=== PATIENT | female | born 1955 | race Caucasian/White ===

== ENCOUNTER 2021-03-16 07:27 | Day surgery (SDC) | payer OTHER ==
[2021-03-10 12:41] VITALS: BMI 38.9
[2021-03-16] MEDS ORDERED: DEXAMETHASONE SOD PHOSPHATE 4 MG/1 ML VIAL ONE ×2 (08:26→12:19)
[2021-03-16] MEDS ORDERED: ONDANSETRON 4 MG/2 ML VIAL ONE ×2 (08:26→12:19)
[2021-03-16] MEDS ORDERED: ceFAZolin SODIUM 1 GM VIAL ONE (08:26)
[2021-03-16] MEDS ORDERED: PROPOFOL 20 ML ONE ×4 (08:26→11:39)
[2021-03-16] MEDS ORDERED: ROPIVACAINE HCL 0.5% 30ML VIAL ONE (08:33)
[2021-03-16] MEDS ORDERED: MIDAZOLAM HCL 2 MG/2 ML SINGLE DOSE VIAL ONE ×2 (08:33→08:41)
[2021-03-16] MEDS ORDERED: KETOROLAC TROMETHAMINE 30 MG/1 ML VIAL ONE (09:14)
[2021-03-16] MEDS ORDERED: oxyCODONE HCL 5 MG TABLET PO PRN ×2 (12:55)
[2021-03-16] MEDS ORDERED: ACETAMINOPHEN 500 MG TABLET (FP) PO PRN (12:55)
[2021-03-16] MEDS ORDERED: ONDANSETRON 4 MG/2 ML VIAL IVPUSH PRN (12:55)
[2021-03-16] MEDS ORDERED: LACTATED RINGERS SOLUTION 1,000 ML IV SCH (13:00)
[2021-03-16 13:49] VITALS: BP 134/72; PULSE 74; TEMP 97.8
== END 2021-03-16 13:49 | disposition home or self-care (01) ==
LOC: FASU 07:27
PROVIDERS: ATTEND Orthopaedic Surgery
PROC: 0RNJ4ZZ Release Right Shoulder Joint, Percutaneous Endoscopic Approach (ICD-10-PCS; 2021-03-16)
PROC: 0LQ14ZZ Repair Right Shoulder Tendon, Percutaneous Endoscopic Approach (ICD-10-PCS; principal; 2021-03-16 10:55)
PROC: 0LS34ZZ Reposition Right Upper Arm Tendon, Percutaneous Endoscopic Approach (ICD-10-PCS; 2021-03-16 10:55)
DX: M75.121 Complete rotator cuff tear or rupture of right shoulder, not specified as traumatic (principal); S46.111A Strain of muscle, fascia and tendon of long head of biceps, right arm, initial encounter; X58.XXXA Exposure to other specified factors, initial encounter; Y93.9 Activity, unspecified; Y92.9 Unspecified place or not applicable
CPT/HCPCS: 88304-TC